=== PATIENT | female | born 1970 | race Caucasian/White ===

== ENCOUNTER → 2019-05-24 | Outpatient (CLI) | payer OTHER | LOC: M.RAD 05-16 10:40 | DX: Z12.31 Encounter for screening mammogram for malignant neoplasm of breast (principal) ==

== ENCOUNTER → 2021-07-23 | Outpatient (CLI) | payer OTHER | LOC: M.ULTRA 07-18 09:00 | PROVIDERS: ATTEND Specialist | DX: N26.1 Atrophy of kidney (terminal) (principal); R94.4 Abnormal results of kidney function studies ==